=== PATIENT | female | born 1975 | race Two or more races ===

== ENCOUNTER 2022-01-31 21:15 | Emergency (ER) | payer OTHER ==
[~2022-01-31] VITALS: Ht 152.4 cm; Wt 63.5 kg
[2022-01-31 21:17] VITALS: BP 149/79
--- NOTE | 2022-01-31 21:45 | NUR ---
Patient discharged to home in stable condition. Written and verbal after care instructions given. Patient verbalizes understanding of instruction.
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
== END 2022-01-31 21:46 | disposition home or self-care (01) ==
LOC: ER 21:17
DX: Z00.00 Encounter for general adult medical examination without abnormal findings (principal); Z59.00 Homelessness unspecified